=== PATIENT | male | born 1970 | race Caucasian/White ===

== ENCOUNTER 2018-03-27 20:12 | Emergency (ER) | payer SELFPAY ==
[2018-03-27] MEDS ORDERED: Lidocaine 1% w/Epinephrine 1:100K 20 ML VIAL ONE (20:34)
== END 2018-03-27 20:55 | disposition home or self-care (01) ==
LOC: ERS 20:12
DX: L02.414 Cutaneous abscess of left upper limb (principal); K21.9 Gastro-esophageal reflux disease without esophagitis; F17.210 Nicotine dependence, cigarettes, uncomplicated; F41.9 Anxiety disorder, unspecified
CPT/HCPCS: 10060; J2001

== ENCOUNTER 2018-03-29 14:11 | Emergency (ER) | payer SELFPAY | END 2018-03-29 15:04 | disposition home or self-care (01) | LOC: ERS 14:11 | DX: Z48.817 Encounter for surgical aftercare following surgery on the skin and subcutaneous tissue (principal); K21.9 Gastro-esophageal reflux disease without esophagitis; F41.9 Anxiety disorder, unspecified; F17.210 Nicotine dependence, cigarettes, uncomplicated; Z87.442 Personal history of urinary calculi | CPT/HCPCS: 99282 ==